=== PATIENT | female | born 1965 | race Two or more races ===

== ENCOUNTER 2023-08-28 10:47 | Emergency (ER) | payer OTHER ==
[~2023-08-28] VITALS: Ht 167.6 cm; Wt 89.6 kg
[2023-08-28 11:14] VITALS: BP 139/85; PULSE 103; RESP 18; O2SAT 100
== END 2023-08-28 14:49 | disposition left against medical advice (07) ==
LOC: ER 10:47
DX: R06.02 Shortness of breath (principal); R20.2 Paresthesia of skin; Z53.21 Procedure and treatment not carried out due to patient leaving prior to being seen by health care provider
CPT/HCPCS: 93005